=== PATIENT | male | born 1995 | race Caucasian/White ===

== ENCOUNTER 2020-04-26 02:36 | Emergency (ER) | payer SELFPAY ==
[2020-04-26 02:40] VITALS: BP 140/99; PULSE 57; RESP 18; TEMP 36.6; O2SAT 99
[2020-04-26] MEDS: ONDANSETRON HCL ODT 4 MG TABLET PO (03:28)
[2020-04-26] MEDS: KETOROLAC (*BKC) 60 MG/2 ML VIAL IM (03:29)
[2020-04-26] MEDS: HYDROMORPHONE HCL 1 MG/ML INJ 0.5 MG IM (03:32)
--- NOTE | 2020-04-26 03:43 | ED.DENTAL ---
HPI - Dental/Oral General Chief complaint: Dental/Oral Stated complaint: tooth pain Time Seen by Provider: 04/26/20 02:38 Source: patient Mode of arrival: ambulatory Limitations: no limitations History of Present Illness HPI Narrative: This patient is a 24 year old male who presents for evaluation of left dental pain. Patient states he has been having pain to his left lower molar for over 1 year. He was scheduled to see a dentist in January but it was cancelled due to cOVID. He states he has been having worsening pain so he was seen at an Urgent care twice in the past week. He was prescribed Augmentin and cefdinir for tooth ache and left ruptured ear drum. He was seen again yesterday for continued pain. He was prescribed Clindamycin and naproxen. He states he took 2 doses today but he still has pain. He has not nausea , vomiting , fever or trouble swallowing. Related Data Home Medications Medication Instructions Recorded Confirmed clindamycin HCl 04/26/20 naproxen 04/26/20 Allergies Allergy/AdvReac Type Severity Reaction Status Date / Time No Known Allergies Allergy Verified 04/26/20 02:48 Review of Systems Review of Systems: All systems reviewed & are unremarkable except as noted in HPI and below Constitutional: Constitutional: Denies chills and Denies fever(s) ENT: Reports as per HPI and Denies dizziness [facility] Surgical History Surgical History (Updated 04/26/20 @ 03:44 by Erinn Eden MD) History of tonsillectomy Social History Social History (Updated 04/26/20 @ 03:44 by Erinn Eden MD) Smoking status: Current every day smoker Gender identity (if verbalized by the patient): Male Exam Const: General: no acute distress and alert Orientation/consciousness: patient oriented x3 HENMT: Head: normocephalic and atraumatic Ears: external ears normal and other (unable to visualize left TM there appears to be bloody mucous in canal) Face and sinus: sinuses nontender and face symmetric Mouth: Yes lip normal, No trismus and No restricted motion Teeth and gingiva: caries (#17, 19 ) and poor dentition Eyes: Pupils: Equal, round and reactive pupils present EOM: EOMs intact bilaterally Neck: Neck: no lymphadenopathy Chest: Chest palpation & inspection: normal inspection of the chest Resp: Effort & Inspection: normal respiratory effort Skin: General skin exam: normal color Rashes: no rashes Neuro: General: patient oriented x3, moves all extremities and no meningeal signs Psych: Mental Status: mental status grossly normal Affect: normal affect Course Vital Signs Vital signs: Vital Signs Temperature 97.9 F 04/26/20 02:40 Pulse Rate 57 L 04/26/20 02:40 Respiratory Rate 18 04/26/20 02:40 Blood Pressure 140/99 H 04/26/20 02:40 Pulse Oximetry 99 04/26/20 02:40 Temperature 97.9 F 04/26/20 02:40 Pulse Rate 57 L 04/26/20 02:40 Respiratory Rate 18 04/26/20 02:40 Blood Pressure 140/99 H 04/26/20 02:40 Pulse Oximetry 99 04/26/20 02:40 Discharge Plan Discharge Clinical Impression: Odontalgia Patient Disposition: Home, Self-Care Condition: Stable Instructions: Antibiotic Form, Dental Abscess (ED), Toothache (ED) Additional Instructions: continue taking your antibiotics clindamycin. You can try calling Dr Navdeep Adler at [phone] to see you can get in sooner. Prescriptions: No Action clindamycin HCl RF: 0 naproxen RF: 0 Follow-up/Referrals: PHYSICIAN,AGENT TELEGRAPHER [Primary Care Provider] - Stand Alone Forms: Work/School Release IP Discharge Date/Time: 04/26/20 04:00
== END 2020-04-26 04:00 | disposition home or self-care (01) ==
PROVIDERS: Emergency Provider General Practice
DX: K08.89 Other specified disorders of teeth and supporting structures (principal); F17.200 Nicotine dependence, unspecified, uncomplicated
CPT/HCPCS: 96372; 99284; A9270; J1170; J1885

== ENCOUNTER 2020-05-01 08:52 | Emergency (ER) | payer SELFPAY ==
--- NOTE | 2020-05-01 09:03 | ED.NAVMDI ---
HPI - Nausea/Vomiting/Diarrhea General Chief complaint: Unspecified Stated complaint: Vomiting blood Time Seen by Provider: 05/01/20 09:02 History of Present Illness HPI Narrative: Blood tinged vomit this morning. This has since cleared up. He says that he vomits most mornings. He has GERD and was on a PPI. He stopped it because he was given naproxen for dental pain and di not want to take both. He continues to he pain in his bottom molars on the right. He plans on having the tooth removed in the next week. Related Data Home Medications Medication Instructions Recorded Confirmed clindamycin HCl 04/26/20 naproxen 04/26/20 Allergies Allergy/AdvReac Type Severity Reaction Status Date / Time No Known Allergies Allergy Verified 05/01/20 09:17 Review of Systems Review of Systems: All systems reviewed & are unremarkable except as noted in HPI and below Constitutional: Constitutional: Denies fever(s) ENT: Denies sore throat Cardiovascular: Cardiovascular: Denies chest pain Respiratory: Respiratory: Denies dyspnea Gastrointestinal: Gastrointestinal: Denies abdominal pain, Reports nausea and Reports vomiting [facility] Surgical History Surgical History History of tonsillectomy Social History Social History Smoking status: Current every day smoker Gender identity (if verbalized by the patient): Male Exam Const: General: no acute distress and alert Orientation/consciousness: patient oriented x3 HENMT: Other: Dental carries Eyes: Pupils: Equal, round and reactive pupils present Neck: Neck: normal visual inspection and no lymphadenopathy Resp: Effort & Inspection: normal respiratory effort Auscultation: clear to auscultation bilaterally Cardio: Rate: regular rate Rhythm: regular rhythm GI: GI Palp: Yes Soft to palpation and No Tenderness to palpation present (GI) Skin: General skin exam: normal color Neuro: General: patient oriented x3 and moves all extremities Speech: normal speech Course Vital Signs Vital signs: Vital Signs Pulse Rate 69 05/01/20 09:05 Respiratory Rate 11 L 05/01/20 09:05 Blood Pressure 120/78 05/01/20 09:05 Pulse Oximetry 99 05/01/20 09:05 Temperature 36.2 C L 05/01/20 09:07 Pulse Rate 64 05/01/20 09:46 Respiratory Rate 12 05/01/20 09:33 Blood Pressure 125/75 05/01/20 09:46 Pulse Oximetry 99 05/01/20 09:46 MDM - Nausea/Vomiting/Diarrhea MDM Narrative Medical decision making narrative: He does not want an IV, lab work, or dental block. I advised him to restart his PPI and stop taking naproxen. I will provide a small amount of tramadol. Discharge Plan Discharge Clinical Impression: Pain, dental, Acid reflux Patient Disposition: Home, Self-Care Condition: Stable Instructions: Gastroesophageal Reflux Disease (ED), Toothache (ED) Prescriptions: New tramadol 50 mg tablet 50 mg PO Q6H PRN (Reason: pain) Qty: 10 RF: 0 No Action clindamycin HCl RF: 0 naproxen RF: 0 Follow-up/Referrals: PHYSICIAN,FOREIGN EXCHANGE POSITION CLERK [Primary Care Provider] - Discharge Date/Time: 05/01/20 10:30
[2020-05-01 09:05] VITALS: BP 120/78; PULSE 69; RESP 11; O2SAT 99
[2020-05-01 09:07] VITALS: BP 108/91; PULSE 70; RESP 19; TEMP 36.2; O2SAT 100
--- NOTE | 2020-05-01 09:13 | PC.NURSE ---
Pt had refused IV and protocol initiation when patient triaged. Pt called out for kevin-bag, note pt had emesis approx 100cc of clear fluid. Pt diaphoretic, cool clothe given. Pt continues to refuse IV and blood draw until evaluated by ERP.
[2020-05-01 09:33] VITALS: BP 112/68; PULSE 85; RESP 12; O2SAT 99
[2020-05-01] MEDS: PANTOPRAZOLE 40 MG TABLET PO (09:33)
[2020-05-01] MEDS: traMADol HCL 50 MG TABLET PO (09:33)
[2020-05-01 09:46] VITALS: BP 125/75; PULSE 64; O2SAT 99
[2020-05-01] MEDS: ONDANSETRON HCL ODT 4 MG TABLET PO (09:52)
--- NOTE | 2020-05-01 09:52 | PC.NURSE ---
Pt continues to have emesis. Refuses IV. Dr. Watts made aware. Pt holding zofran pill to take in between emesis.
== END 2020-05-01 10:30 | disposition home or self-care (01) ==
PROVIDERS: Emergency Provider Emergency Medicine
DX: K21.9 Gastro-esophageal reflux disease without esophagitis (principal); K08.89 Other specified disorders of teeth and supporting structures; F17.210 Nicotine dependence, cigarettes, uncomplicated
CPT/HCPCS: 99283; A9270

== ENCOUNTER 2022-11-23 17:56 | Emergency (ER) | payer OTHER, SELFPAY ==
--- NOTE | ~2022-11-23 | XR_ITS ---
EXAMINATION: XR chest 2V DATE: 11/23/2022 18:45 INDICATION: Chest pressure. TECHNIQUE: Frontal and lateral views of the chest were obtained. COMPARISON: None. FINDINGS: There is no pneumonia, pleural effusion, or pneumothorax. The heart size is normal. IMPRESSION: 1. No acute cardiopulmonary disease. Reviewed, dictated and finalized at location A. LE PACKING MACHINE CLEANER
--- NOTE | 2022-11-23 17:59 | ECG_ITS ---
Measurements Intervals [place] Rate: 122 P: 26 TN: 108 QRS: 22 QRSD: 97 T: 29 QT: 301 QTc: 429 Interpretive Statements SINUS TACHYCARDIA WITH SHORT TN INTERVAL MINIMAL Q WAVES- INFERIOR LEADS ABNORMAL ECG NO PREVIOUS ECG AVAILABLE FOR COMPARISON Electronically Signed On 11-23-2022 19:57:20 PHOTOGRAPHIC MACHINE OPERATOR by Bigg Fields D.O.
[2022-11-23 18:12] VITALS: BP 126/74; PULSE 106; RESP 22; TEMP 37.3; O2SAT 100
[2022-11-23 18:47] LABS: D Dimer 0.43 ug/mL (<0.48); Troponin I < 0.012 ng/mL (0.000-0.034)
--- NOTE | 2022-11-23 18:50 | ED.CHESTPAIN ---
HPI - Chest Pain General Chief Complaint: Chest Pain Stated Complaint: chest pain, light headed Time Seen by Provider: 11/23/22 18:07 History of Present Illness HPI narrative: 27-year-old male presents to the emergency room for evaluation of chest pain. States the pain has been present for several weeks and is worse with inspiration and movement. Has not taken any medications to alleviate his symptoms. Describes the pain as a pressure sensation that does not radiate. Denies any nausea or vomiting. Denies dizziness or lightheadedness. Has not had any similar symptoms. Patient states that he is a chronic marijuana user, as well as a smoker and vaper. Denies palpitations or lower extremity edema. Related Data Home Medications Medication Instructions Recorded Confirmed clindamycin HCl 04/26/20 naproxen 04/26/20 Allergies Allergy/AdvReac Type Severity Reaction Status Date / Time No Known Allergies Allergy Verified 05/01/20 09:17 Review of Systems Review of Systems: CONSTITUTIONAL: Denies fever, chills, or sweats. EYES: Denies visual changes, redness, or discharge. ENT: Denies rhinorrhea, congestion, sore throat, or otalgia. CARDIOVASCULAR: Reports chest pain RESPIRATORY: Denies cough or dyspnea. GASTROINTESTINAL: Denies abdominal pain, nausea, vomiting, or diarrhea. GENITOURINARY: Denies dysuria or hematuria. SKIN: Denies rash or itching. MUSCULOSKELETAL: Denies back pain, joint pain, or myalgia. NEUROLOGIC: Denies headache, numbness, dizziness, or weakness. PSYCHIATRIC: Denies anxiety or depression. [facility] Surgical History Surgical History History of tonsillectomy Social History Social History Smoking status: Current every day smoker Gender identity (if verbalized by the patient): Male Exam Narrative: GENERAL: Well-appearing, well-nourished, no physical limitations, and in no acute distress. HEAD: Normocephalic, atraumatic. EYES: Conjunctivae normal, PERRLA and EOMI. CHEST: Clear to auscultation. No respiratory distress. No wheezes rales or rhonchi. Chest wall tenderness. HEART: Regular rate and rhythm. No murmur heard. Normal peripheral pulses. ABDOMEN: Soft, nontender, nondistended, normal active bowel sounds. EXTREMITIES: Normal range of motion. No edema. No clubbing or cyanosis SKIN: Warm, dry, no rash. No noted wounds NEURO: No focal deficits. Alert and oriented x3. MAEW. CN's II-XI intact bilaterally, normal gait PSYCH: Cooperative. Anxious Course Vital Signs Vital signs: Vital Signs Temperature 37.3 C 11/23/22 18:12 Pulse Rate 106 H 11/23/22 18:12 Respiratory Rate 22 H 11/23/22 18:12 Blood Pressure 126/74 11/23/22 18:12 Pulse Oximetry 100 11/23/22 18:12 Oxygen Delivery Room Air 11/23/22 18:12 Temperature 37.3 C 11/23/22 18:12 Pulse Rate 106 H 11/23/22 18:12 Respiratory Rate 22 H 11/23/22 18:12 Blood Pressure 126/74 11/23/22 18:12 Pulse Oximetry 100 11/23/22 18:12 Oxygen Delivery Room Air 11/23/22 18:12 MDM - Chest Pain Lab Data Labs: Lab Results 11/23/22 11/23/22 Range/Units 18:18 18:18 D-Dimer 0.43 (<0.48) ug/mL Troponin I < 0.012 (0.000-0.034) ng/mL Imaging Data My impression: Impressions Chest X-Ray 11/23/22 18:45 IMPRESSION: 1. No acute cardiopulmonary disease. ECG Data EKG #1: EKG Interpretation: tachycardia, sinus rhythm, no ectopy, no ST changes, normal QRS, normal QT and NL axis Discharge Plan Discharge Clinical Impression: Costalchondritis Patient Disposition: Home, Self-Care Condition: Stable Instructions: Antibiotic Form, Chest Wall Pain (ED), Costochondritis (ED) Prescriptions: New naproxen sodium 550 mg tablet 550 mg PO Q12H PRN (Reason: pain) Qty: 14 0RF No Action clindamycin HCl naproxen tramad
[2022-11-23 19:10] LABS: Appearance Urine Clear (Clear); Bilirubin Urine Negative (Negative); Blood Urine Negative (Negative); Color Urine Yellow (Yellow); Glucose Urine UA Negative (Negative); Ketones Urine Negative (Negative); Leukocyte Esterase Ur Negative LEU/UL (Negative); Nitrate Urine Negative (Negative); Protein Urine Negative (Negative); Urobilinogen Urine 0.2 mg/dL (<2.0); pH Urine 6.5 (5.0-9.0)
[2022-11-23 19:13] LABS: Mucus Urine Rare /lpf; RBC Urine 0-2 /hpf (0-2); WBC Urine 0-3 /hpf
[2022-11-23 19:23] LABS: Add Urine Microscopic? YES
[2022-11-23 19:33] LABS: Amphetamine Screen Urine Negative (Negative); Barbiturate Screen Urine Negative (Negative); Benzodiazepines Screen Urine Negative (Negative); Cannabinoid Screen Urine Positive (Negative); Cocaine Screen Urine Negative (Negative); Methadone Screen Urine Negative (Negative); Opiate Screen Urine Negative (Negative); Phencyclidine Screen Urine Negative (Negative)
== END 2022-11-23 20:02 | disposition home or self-care (01) ==
PROVIDERS: Emergency Medicine; Emergency Provider Nurse Practitioner Family
DX: M94.0 Chondrocostal junction syndrome [Tietze] (principal); F17.200 Nicotine dependence, unspecified, uncomplicated
CPT/HCPCS: 36415; 71046; 80307; 81001; 84484; 85380; 93005; 99284

== ENCOUNTER 2022-11-24 20:29 | Emergency (ER) | payer OTHER, SELFPAY ==
[2022-11-24 20:31] VITALS: BP 128/71; PULSE 81; RESP 16; TEMP 36.7; O2SAT 98
[2022-11-24] MEDS: diphenhydrAMINE HCl CAP 25 MG CAPSULE PO (21:49)
[2022-11-24] MEDS: FAMOTIDINE 20 MG TABLET PO (21:49)
--- NOTE | 2022-11-24 23:31 | ED.SKABFB ---
HPI - Skin/Abscess/Foreign Bdy General Chief complaint: Skin/Abscess/Foreign Body Stated complaint: rash Time Seen by Provider: 11/24/22 20:41 History of Present Illness HPI narrative: Patient is a 27-year-old male who presents ER with rash. Reports its been occurring intermittently over the last month. Tonight he is developed some swelling of his lip while in ER. Reports she has had lip swelling for several times over the month as well. All last interiano. When he takes Benadryl for his rash it will improved. No difficulty breathing or swallowing. No tongue swelling. Patient reports he has been taking naproxen intermittently over the month for some dental pain he has been having. Noticed tonight that 2 hours after taking the medication he developed his rash again. He takes no other oral medications. He does smoke marijuana. Reports he is mildly getting detergents and does not believe that the wall your fragrance free. Related Data Allergies Allergy/AdvReac Type Severity Reaction Status Date / Time naproxen Allergy Rash Verified 11/24/22 22:16 Review of Systems Review of Systems: All systems reviewed & are unremarkable except as noted in HPI and below Integumentary/Breasts: Skin/Breast: Reports pruritus, Reports erythema, Reports rash and Denies skin ulcer Allergic/Immunologic: Allergic/Immunologic: Reports lip swelling, Denies throat swelling, Denies tongue swelling and Denies wheezing PMFSH Past Medical History Medical History (Updated 11/24/22 @ 23:38 by Jayant Bautista MD) Healthy adult male Surgical History Surgical History History of tonsillectomy Social History Social History Smoking status: Current every day smoker Gender identity (if verbalized by the patient): Male Exam Narrative: GENERAL: Well-appearing, well-nourished, and in no acute distress. HEAD: Normocephalic, atraumatic. EYES: PERRL and EOMI. ENT: Mucous membranes moist. Angioedema lower lip. No Sinus. CHEST: Clear to auscultation. No respiratory distress. HEART: Regular rate and rhythm. Normal peripheral pulses. EXTREMITIES: Normal range of motion. No edema. SKIN: Warm, dry, urticaria along the lateral garcia of the chest and abdomen bilaterally with redness/wrinkles. NEURO: Alert and oriented x3. PSYCH: Normal mood and affect. Course Course Emergency Course: Urticaria resolved and patient feels like he is trying to go down after Benadryl and cimetidine. Reports he usually takes 3 hours per night. Discussed discontinuation proximal and is it is mostly closed and allergic reaction. Also encouraged avoidance of any anti-inflammatory medication in the short-term. Recommend establishing care with PCP Vital Signs Vital signs: Vital Signs Temperature 98.1 F 11/24/22 20:31 Pulse Rate 81 11/24/22 20:31 Respiratory Rate 16 11/24/22 20:31 Blood Pressure 128/71 11/24/22 20:31 Pulse Oximetry 98 11/24/22 20:31 Temperature 98.1 F 11/24/22 20:31 Pulse Rate 81 11/24/22 20:31 Respiratory Rate 16 11/24/22 20:31 Blood Pressure 128/71 11/24/22 20:31 Pulse Oximetry 98 11/24/22 20:31 Discharge Plan Discharge Clinical Impression: Naproxen allergy Patient Disposition: Home, Self-Care Condition: Stable Instructions: Urticaria (ED), Angioedema (ED) Additional Instructions: It is felt he having allergy to naproxen that is causing rash to body as well as edema to your lip. Discontinue using any naproxen or Aleve. It is also recommended in the interim to avoid any other anti-inflammatories including Advil/ibuprofen/aspirin. Please take Benadryl 25 mg every 6 hours for the next 24 hours and famotidine 20 mg twice a day. If you need to take medication for pain please take Tylenol/acetaminophen. . To the ER immediately or call an ambulance. Cannot breathe, you cannot swallow, you
== END 2022-11-25 00:10 | disposition home or self-care (01) ==
PROVIDERS: Emergency Provider Emergency Medicine
DX: L27.0 Generalized skin eruption due to drugs and medicaments taken internally (principal); T39.315A Adverse effect of propionic acid derivatives, initial encounter; F17.200 Nicotine dependence, unspecified, uncomplicated
CPT/HCPCS: 99283; A9270